=== PATIENT | female | born 1960 | race Two or more races ===

== ENCOUNTER 2023-08-18 02:39 | Emergency (ER) | payer OTHER ==
[~2023-08-18] VITALS: Ht 162.6 cm; Wt 68.0 kg
[2023-08-18 04:22] LABS: HEMATOCRIT 35.6 % (36.0-45.00); HEMOGLOBIN 12.1 g/dL (12.0-15.00); MEAN CELL VOLUME 89.1 fL (80.00-100.00); MEAN CORPUSCULAR HEMOGLOBIN 30.2 pg (27.00-32.0); MEAN CORPUSCULAR HGB CONC 33.9 g/dl (32.0-36.0); PLATELET COUNT 213 K/uL (150-450); RED CELL DISTRIBUTION WIDTH 14.4 % (11.5-14.5)
[2023-08-18 04:45] LABS: CALCIUM 9.5 mg/dL (8.5-10.1); CREATININE SERUM 0.8 mg/dL (0.55-1.02); GFR 73.16; POTASSIUM 4.09 mEq/L (3.5-5.1)
[2023-08-18 04:57] LABS: URINE APPEARANCE Clear; URINE BILIRRUBIN Negative (NEGATIVE); URINE BLOOD Negative; URINE COLOR Yellow; URINE GLUCOSE Negative (NEGATIVE); URINE LEUKOCYTE Trace; URINE NITRATE Negative; URINE PROTEIN Trace (NEGATIVE)
[2023-08-18 04:58] LABS: URINE BACTERIA 41.5 uL (0.0-1933); URINE EPITHELIAL CELLS 27.7 uL (0.0-38.8); URINE WBC 14.8 uL (0.0-23.2)
[2023-08-18] MEDS ORDERED: ORPHENADRINE CITRATE 100 MG TABLET PO STA (06:10)
[2023-08-18] MEDS ORDERED: DOLOGESIC-DF 51 EACH PO (06:32)
== END 2023-08-18 06:40 | disposition home or self-care (01) ==
LOC: ER 02:39
PROVIDERS: General Practice
DX: R53.1 Weakness (principal)